=== PATIENT | female | born 1965 | race Caucasian/White ===

== ENCOUNTER 2018-11-18 07:39 | Day surgery (SDC) | payer OTHER ==
[~2018-11-18] VITALS: Ht 157.5 cm; Wt 51.9 kg
[~2018-11-18 07:39] MED LIST: ACIDOPHILUS LACT1 GM PO; BIEST/PROGESTERONE TOP; ESTR2 PO; GLUCOSAMINE CH1 EAC4; LEVSOD100 PO; LEVSOD50 PO; Multivitamin1 EAC1 PO; PROGESTERONE100 MG PO
[2018-11-18] MEDS ORDERED: PANT40 (08:09)
[2018-11-18] MEDS ORDERED: FISH OIL + D31 EACH (08:10)
== END 2018-11-18 09:37 | disposition home or self-care (01) ==
LOC: ORSCSDS 07:39
PROVIDERS: Internal Medicine Gastroenterology
PROC: 0DB58ZX Excision of Esophagus, Via Natural or Artificial Opening Endoscopic, Diagnostic (ICD-10-PCS; principal; 2018-11-18 09:00)
PROC: 0DB68ZX Excision of Stomach, Via Natural or Artificial Opening Endoscopic, Diagnostic (ICD-10-PCS; principal; 2018-11-18 09:00)
PROC: 0DB88ZX Excision of Small Intestine, Via Natural or Artificial Opening Endoscopic, Diagnostic (ICD-10-PCS; principal; 2018-11-18 09:00)
DX: K21.0 Gastro-esophageal reflux disease with esophagitis (principal); E03.9 Hypothyroidism, unspecified; E78.5 Hyperlipidemia, unspecified; Z79.899 Other long term (current) drug therapy
CPT/HCPCS: 88305; 88342; J2704; J7120

== ENCOUNTER → 2022-08-06 | Outpatient (CLI) | payer OTHER ==
[~2022-08-06] MED LIST changes: +FISH OIL + D31 EACH; +PANT40
== END | disposition home or self-care (01) ==
LOC: LAB SHORT 12:00 → PLD 12:00
DX: D48.5 Neoplasm of uncertain behavior of skin (principal)
CPT/HCPCS: 88305